=== PATIENT | male | born 1985 | race Two or more races ===

== ENCOUNTER → 2017-10-22 | Emergency (ER) | payer OTHER ==
[~2017-10-22] VITALS: Ht 177.8 cm; Wt 120.7 kg
[~2017-10-22] MED LIST: PEPCID40 MG PO; PHENERGAN25 MG PO
== END | disposition home or self-care (01) ==
LOC: ER 01:39
DX: K29.70 Gastritis, unspecified, without bleeding (principal)

== ENCOUNTER 2018-04-14 08:35 | Outpatient (CLI) | payer OTHER | END 2018-04-14 11:43 | disposition home or self-care (01) | LOC: SONOGRAMA 08:35 | DX: E04.1 Nontoxic single thyroid nodule (principal) ==

== ENCOUNTER 2018-06-03 15:37 | Outpatient (CLI) | payer OTHER | END 2018-06-03 16:02 | disposition home or self-care (01) | LOC: RAD 15:37 | DX: Z01.818 Encounter for other preprocedural examination (principal) ==